=== PATIENT | female | born 1985 | race Caucasian/White ===

== ENCOUNTER 2018-08-06 15:07 | Inpatient (IN) | payer OTHER ==
[~2018-08-06 15:07] MED LIST: PROPOFOL 200 MG/20 ML VIAL ONE; Succinylcholine Chloride 20 MG/ML 10 ml SYRINGE FS ONE
[2018-08-06] MEDS: Lactated Ringer's 1,000 ML IV SCH ×2 (15:40→23:57)
[2018-08-06] MEDS: hydrALAZINE 20 MG/ML VIAL SLOW IVP SCH ×5 (15:50→23:35)
[2018-08-06 16:11] LABS: #Eosinphils 0.1 thou/uL (0.0-0.7); #Lymphocytes 1.9 thou/uL (1.20-3.40); #Monocytes 0.7 thou/uL (0.11-0.59); #Neutrophils 6.2 thou/uL (1.40-6.50); %Basophils 0.4 % (0.0-1.0); %Eosinophils 1.4 % (0.0-10.0); %Lymphocytes 21.6 % (21.0-51.0); %Monocytes 7.4 % (0.0-10.0); %Neutrophils 69.2 % (42.0-75.0); Hemoglobin 10.4 g/dL (12.0-16.0); Mean Corpuscular HGB CONC 34.3 g/dL (32.0-36.0); Mean Corpuscular Hemoglobin 28.5 pg (27.0-31.0); Mean Corpuscular Volume 83.3 fL (78.0-98.0); Mean Platelet Volume 9.9 fL (7.4-10.4); Platelet Count 256 thou/uL (130-400); RBC Distribution Width 11.4 % (11.5-14.5); Red Blood Cell (RBC) Count 3.63 mill/uL (4.20-5.40); White Blood Cell (WBC) Count 8.9 thou/uL (4.8-10.8)
[2018-08-06 16:28] LABS: ALT (SGPT) 28 U/L (8-55); ALT (SGPT) 29 U/L (8-55); AST (SGOT) 21 U/L (5-34); AST (SGOT) 23 U/L (5-34); Albumin 3.5 g/dL (3.5-5.0); Alkaline Phosphatase 84 U/L (40-150); Anion Gap 10 mmol/L (10-20); BUN (Urea Nitrogen) 8 mg/dL (7.0-18.7); Bilirubin, Total 0.4 mg/dL (0.2-1.2); Calc. Creatinine Clearance 0 mL/min (70-130); Calcium 8.9 mg/dL (7.8-10.44); Carbon Dioxide 22 mmol/L (22-29); Chloride 107 mmol/L (98-107); Estimated GFR-MDRD Greater than 90; Globulin 2.9 g/dL (2.4-3.5); Glucose 78 mg/dL (70-105); LDH 165 U/L (125-220); Potassium 4.1 mmol/L (3.5-5.1); Protein, Total 6.4 g/dL (6.0-8.3); Sodium 135 mmol/L (136-145); Uric Acid 6.2 mg/dL (2.6-6.0)
[2018-08-06 16:46] VITALS: BMI 28.8
[2018-08-06 17:26] LABS: Creatinine, Urine 31.19 mg/dL (47-110); Protein, Urine Random Quant Less than 10 mg/dL (1-14)
[2018-08-06] MEDS: Acetaminophen 500 MG TAB PO SCH (17:55)
[2018-08-06] MEDS ORDERED: Betamet Acet/Betamet Na Ph 30 MG/5 ML VIAL ONE (18:25)
[2018-08-06] MEDS: Betamet Acet/Betamet Na Ph 30 MG/5 ML VIAL IM SCH (21:12)
[2018-08-06] MEDS: Labetalol 100 MG TAB PO SCH (21:17)
--- NOTE | 2018-08-06 22:14 | CON ---
DATE OF CONSULTATION: 08/06/2018 REASON FOR CONSULTATION: Hypertension in the face of . HISTORY OF PRESENT ILLNESS: Ms. Spence is a 33-year-old woman who is the patient of Dr. Smith leo. She is at 28 weeks . She states she has had hypertension since the age of 8, altho ugh treatment was unknown. She states her blood pressure has been in the 170s/100s, which she states this is "good for her." Her blood pressure recently was in the 180s/120s. She has been on labetalo l, hydralazine in addition to nifedipine, although states she ran out of nifedipine recently. She wa s on 30 mg in addition to 200 mg of labetalol. No chest pain or pressure noted. PAST MEDICAL HISTORY: Hypertension, scoliosis. ALLERGIES: None. MEDICATIONS: As above. SOCIAL HISTORY: She is currently . No current tobacco or alcohol use. REVIEW OF SYSTEMS: Ten-point review of systems is reviewed and as above, otherwise negative. PHYSICAL EXAMINATION: GENERAL: Patient is a pleasant female who is in no acute distress. The patient appears her stated a ge. VITAL SIGNS: Blood pressure 167/101, pulse 92, temperature afebrile. NEUROLOGIC: The patient is alert and oriented times 3 with no focal neurologic deficits. HEENT: Sclerae without icterus. Mouth has moist mucous membranes with normal pallor. NECK: No JVD. Carotid upstroke brisk. No bruits bilaterally. LUNGS: Clear to auscultation with unlabored respirations. BACK: No scoliosis or kyphosis. CARDIAC: Regular rate and rhythm with normal S1 and S2. No S3 or S4 noted. No significant rubs, murmurs, thrills, or gallops noted throughout the precordium. PMI is not displa marilee. There is no parasternal heave. ABDOMEN: Soft, nontender, nondistended. No peritoneal signs present. No hepatosplenomegaly. No abnormal striae. EXTREMITIES: 2+ femoral and 2+ dorsalis pedis pulses. No cyanosis, clubbing, or edema. SKIN: No gross abnormalities. PERTINENT LABS: Hemoglobin 10.4, creatinine 0.67. Most recent echo with Doppler in Dr. Smith Barragan's office with normal LVEF, dated 05/10/2018. IMPRESSION: Hypertension. RECOMMENDATIONS: Increase labetalol to 400 mg p.o. b.i.d. in addition to adding nifedipine 90 mg aysha ly. felt to be a weak drug. We will consider hydralazine. I discussed the case with Dr. J Carlos Brown and both agreed to proceed with the current recommendations. She did have questions on deli very. I defer those question to Dr. Jatinder Brown.
[2018-08-07] MEDS ORDERED: Acetaminophen 500 MG TAB PO SCH (00:15)
[2018-08-07] MEDS: hydrALAZINE 20 MG/ML VIAL SLOW IVP SCH ×4 (02:00→09:08)
--- NOTE | 2018-08-07 07:35 | PDOC.CTH ---
Cardiology Progress Note - Objective Vital Signs Pulse BP 08/07/18 06:00 88 133/77 08/07/18 04:00 91 128/71 08/07/18 02:00 102 H 142/78 H 08/06/18 23:35 122 H 166/97 H 08/06/18 21:20 122 H 166/97 H 08/06/18 21:17 122 H 166/97 H Weight 143 lb - Physical Examination General/Neuro: alert & oriented x3, NAD Neck: carotid US brisk, no JVD present Lungs: CTA, unlabored respirations Heart: PMI normal, RRR Abdomen: NT/ND, soft Extremities: + femoral B - Labs Result Diagrams: 08/06/18 15:54 08/06/18 15:54 - Assessment/Plan HTN Improved on labetalol, nifedipine limit Na intake
[2018-08-07] MEDS: Lactated Ringer's 1,000 ML IV SCH (07:56)
[2018-08-07] MEDS: Labetalol 100 MG TAB PO SCH ×2 (09:07→20:46)
[2018-08-07] MEDS: NIFEdipine XL 60 MG TAB PO SCH (09:07)
[2018-08-07] MEDS: Betamet Acet/Betamet Na Ph 30 MG/5 ML VIAL IM SCH (18:35)
[2018-08-07] MEDS: Acetaminophen 500 MG TAB PO SCH (20:47)
[2018-08-08] MEDS: Labetalol 100 MG TAB PO SCH ×2 (09:06→17:11)
[2018-08-08] MEDS: NIFEdipine XL 60 MG TAB PO SCH (09:35)
--- NOTE | 2018-08-08 13:45 | PRG ---
DATE OF SERVICE: 08/07/2018 SUBJECTIVE: Page is currently doing well. Her blood pressure is much better controlled on hydralazine and labetalol. No current complaints. OBJECTIVE: VITAL SIGNS: Blood pressure 136/77, pulse 80, and respirations 20. LUNGS: Clear to auscultation. HEART: Regular rate and rhythm. ABDOMEN: Soft, nontender, and nondistended. EXTREMITIES: No edema. IMPRESSION: 1. Hypertension. 2. . RECOMMENDATIONS: Continue current medical therapy. I did state she should follow up with Dr. Smith Barragan as an outpatient. He is her primary refinish technician. Otherwise, . Job ID: [id number]
[2018-08-08] MEDS: Lactated Ringer's 1,000 ML IV SCH (14:31)
[2018-08-09] MEDS: Labetalol 100 MG TAB PO SCH ×3 (01:45→16:50)
[2018-08-09] MEDS: NIFEdipine XL 60 MG TAB PO SCH (09:39)
[2018-08-09] MEDS: Lactated Ringer's 1,000 ML IV SCH ×4 (16:54→22:30)
[2018-08-09] MEDS: Betamet Acet/Betamet Na Ph 30 MG/5 ML VIAL IM SCH (22:26)
[2018-08-09] MEDS: hydrALAZINE 20 MG/ML VIAL SLOW IVP SCH ×6 (22:26→22:38)
[2018-08-09] MEDS: Acetaminophen 500 MG TAB PO PRN (22:38)
[2018-08-10] MEDS: Labetalol 100 MG TAB PO SCH ×4 (01:18→20:55)
[2018-08-10] MEDS: Lactated Ringer's 1,000 ML IV SCH (01:20)
[2018-08-10] MEDS: hydrALAZINE 20 MG/ML VIAL SLOW IVP SCH ×2 (05:25→05:26)
[2018-08-10] MEDS: NIFEdipine XL 90 MG TAB PO SCH (08:47)
[2018-08-10 13:37] LABS: Hemoglobin 10.3 g/dL (12.0-16.0); Mean Corpuscular HGB CONC 34.7 g/dL (32.0-36.0); Mean Corpuscular Volume 83.4 fL (78.0-98.0); Mean Platelet Volume 9.7 fL (7.4-10.4); Platelet Count 253 thou/uL (130-400); RBC Distribution Width 11.5 % (11.5-14.5); Red Blood Cell (RBC) Count 3.54 mill/uL (4.20-5.40); White Blood Cell (WBC) Count 9.4 thou/uL (4.8-10.8)
[2018-08-10] MEDS ORDERED: hydrALAZINE 20 MG/ML VIAL SLOW IVP SCH (13:45)
[2018-08-10] MEDS: Acetaminophen 500 MG TAB PO PRN (15:43)
[2018-08-11] MEDS: NIFEdipine XL 90 MG TAB PO SCH (09:10)
[2018-08-11] MEDS: Labetalol 100 MG TAB PO SCH ×2 (09:11→17:00)
[2018-08-11 12:18] LABS: Creatinine, Urine 182.79 mg/dL (47-110)
[2018-08-11] MEDS ORDERED: Labetalol 100 MG TAB PO SCH (14:00)
[2018-08-11 19:45] LABS: Collection Duration 24 hrs; Urine Total Volume 1100 mL (600-1600)
[2018-08-11 20:02] LABS: Protein, Urine Less than 10 mg/dL (1-14)
[2018-08-12] MEDS: Labetalol 100 MG TAB PO SCH ×3 (02:00→17:50)
[2018-08-12] MEDS: NIFEdipine XL 90 MG TAB PO SCH (08:41)
[2018-08-13] MEDS: Labetalol 100 MG TAB PO SCH ×3 (00:56→19:35)
[2018-08-13] MEDS: Acetaminophen 500 MG TAB PO PRN (01:05)
[2018-08-13] MEDS: NIFEdipine XL 90 MG TAB PO SCH (09:44)
[2018-08-13] MEDS ORDERED: Betamet Acet/Betamet Na Ph 30 MG/5 ML VIAL IM ONE (13:15)
[2018-08-13] MEDS ORDERED: Magnesium Sulfate 20 GM/WATER 500 ML BAG IVPB SCH (13:15)
[2018-08-13] MEDS: Magnesium Sulfate 20 GM/WATER 500 ML BAG IVPB SCH (16:03)
[2018-08-14] MEDS: Magnesium Sulfate 20 GM/WATER 500 ML BAG IVPB SCH (01:33)
[2018-08-14] MEDS: Labetalol 100 MG TAB PO SCH ×2 (03:41→11:39)
[2018-08-14] MEDS ORDERED: Magnesium Sulfate 20 gm/500 ml 20 GM/500 ML BAG ONE ×2 (09:49→20:38)
[2018-08-14] MEDS: NIFEdipine XL 90 MG TAB PO SCH (10:33)
[2018-08-14] MEDS ORDERED: Ondansetron PF 4 MG/2 ML Vial ONE ×3 (12:17→18:51)
[2018-08-14] MEDS ORDERED: Ondansetron PF 4 MG/2 ML Vial SLOW IVP SCH (12:45)
[2018-08-14] MEDS ORDERED: Dexamethasone 20 MG/5 ML VIAL ONE (16:33)
[2018-08-14] MEDS ORDERED: Succinylcholine Chloride 20 MG/ML 10 ml SYRINGE FS ONE (16:33)
[2018-08-14] MEDS ORDERED: PROPOFOL 200 MG/20 ML VIAL ONE (16:33)
[2018-08-14] MEDS ORDERED: Fentanyl 100 MCG/2 ML VIAL ONE ×2 (16:58→18:46)
[2018-08-14] MEDS ORDERED: Morphine PF 1 MG/ML SYR ONE (17:09)
[2018-08-14] MEDS ORDERED: CEFAZOLIN 2 GM/50 ML BAG ONE (17:10)
[2018-08-14] MEDS ORDERED: Lidocaine 1% PF 5 ML VIAL ONE (17:10)
[2018-08-14] MEDS ORDERED: Bupivacaine 0.75% W/DEXTROSE 8.25% 2 ML AMP ONE (17:10)
[2018-08-14] MEDS ORDERED: Bicitra 30 ML UDCUP ONE (17:11)
[2018-08-14] MEDS ORDERED: Bicitra 30 ML UDCUP PO SCH (17:30)
[2018-08-14] MEDS ORDERED: CEFAZOLIN 2 GM/50 ML BAG IVPB SCH (17:30)
[2018-08-14] MEDS ORDERED: Oxytocin 10 UNITS/ML VIAL ONE ×2 (18:27→18:35)
[2018-08-14] MEDS ORDERED: diphenhydrAMINE 50 MG/ML VIAL IVP PRN (18:33)
[2018-08-14] MEDS ORDERED: L&D-Morphine 4 MG/ML VIAL SLOW IVP PRN (18:33)
[2018-08-14] MEDS ORDERED: Zolpidem Tartrate 5 MG TAB PO PRN (18:33)
[2018-08-14] MEDS ORDERED: HYDROmorphone 2 MG/ML VIAL SLOW IVP PRN (18:33)
[2018-08-14] MEDS ORDERED: Naloxone HCl 0.4 mg/ml Vial IV PRN (18:33)
[2018-08-14] MEDS ORDERED: Ondansetron PF 4 MG/2 ML Vial IVP PRN (18:33)
[2018-08-14] MEDS ORDERED: diphenhydrAMINE 25 MG CAP PO PRN (18:33)
[2018-08-14] MEDS ORDERED: Meperidine HCl/PF 25 MG/ML VIAL SLOW IVP PRN (18:33)
[2018-08-14] MEDS ORDERED: Promethazine HCl 25 MG/ML VIAL IM PRN (18:33)
[2018-08-14] MEDS ORDERED: diphenhydrAMINE 50 MG/ML VIAL IM PRN (18:33)
[2018-08-14] MEDS ORDERED: Ondansetron HCl/PF 4 MG/2 ML Vial IVP PRN (18:33)
[2018-08-14] MEDS ORDERED: Morphine CADD 1 MG/ML CADD IVPB PRN (18:33)
[2018-08-14] MEDS ORDERED: Ketorolac Tromethamine 30 MG/ML VIAL IVP SCH (18:45)
[2018-08-14] MEDS ORDERED: Communication Order-Pharmacy FS SCH (18:45)
[2018-08-14] MEDS ORDERED: Dexamethasone 4 mg/ml Vial ONE (18:51)
[2018-08-14 19:23] LABS: Actual Bicarbonate (HCO3v) 22 mEq/L (22-28); Base Excess -2.4 mEq/L (-2.0 to +3.0); Base Excess (BEa) -2.4 mEq/L (-2.0 to +3.0); pH (Cord, venous) 7.39 (7.32-7.43)
[2018-08-14] MEDS ORDERED: Morphine 4 MG/ML VIAL ONE (21:02)
[2018-08-14] MEDS ORDERED: Morphine 2 MG/ML SYRINGE SLOW IVP PRN (21:04)
[2018-08-14] MEDS ORDERED: Morphine 4 MG/ML VIAL SLOW IVP SCH (21:15)
[2018-08-14 22:55] LABS: Hemoglobin 9.3 g/dL (12.0-16.0); Mean Corpuscular HGB CONC 34.1 g/dL (32.0-36.0); Mean Corpuscular Hemoglobin 28.5 pg (27.0-31.0); Mean Corpuscular Volume 83.6 fL (78.0-98.0); Mean Platelet Volume 10.2 fL (7.4-10.4); Platelet Count 255 thou/uL (130-400); RBC Distribution Width 11.7 % (11.5-14.5); Red Blood Cell (RBC) Count 3.27 mill/uL (4.20-5.40); White Blood Cell (WBC) Count 15.5 thou/uL (4.8-10.8)
[2018-08-15] MEDS ORDERED: Magnesium Sulfate 20 gm/500 ml 20 GM/500 ML BAG IVPB SCH (03:30)
[2018-08-15] MEDS: Labetalol 100 MG TAB PO SCH ×2 (08:38→17:35)
[2018-08-15] MEDS ORDERED: Adacel (T-DAP) 0.5 ML SYRINGE IM ONE (16:59)
[2018-08-15] MEDS ORDERED: Zolpidem Tartrate 5 MG TAB PO PRN (16:59)
[2018-08-15] MEDS ORDERED: HYDROcodone/Acetaminophen 5/325 mg Tablet PO PRN ×2 (16:59)
[2018-08-15] MEDS ORDERED: Lanolin Ointment 7 GM TUBE TOP PRN (16:59)
[2018-08-15] MEDS ORDERED: Bisacodyl 10 MG SUPP PR PRN (16:59)
[2018-08-15] MEDS ORDERED: Simethicone Chewable 80 MG TAB PO PRN (16:59)
[2018-08-15] MEDS ORDERED: Ondansetron PF 4 MG/2 ML Vial IVP PRN (16:59)
[2018-08-15] MEDS ORDERED: Meperidine HCl/PF 25 MG/ML VIAL IM PRN (16:59)
[2018-08-15] MEDS ORDERED: Acetaminophen 325 MG TAB PO PRN (16:59)
[2018-08-15] MEDS ORDERED: diphenhydrAMINE 25 MG CAP PO PRN (16:59)
[2018-08-15] MEDS ORDERED: Lactated Ringer's 1,000 ML IV SCH (17:00)
[2018-08-15] MEDS ORDERED: hydrALAZINE 20 MG/ML VIAL SLOW IVP SCH (17:15)
[2018-08-15] MEDS ORDERED: Labetalol 100 MG TAB PO SCH (21:00)
[2018-08-15] MEDS: Ferrous Sulfate 325 MG TAB PO SCH (22:41)
[2018-08-15] MEDS: Docusate Calcium (SURFAK) 240 MG CAP PO SCH (22:43)
[2018-08-15] MEDS: Ibuprofen 800 MG TAB PO SCH (22:43)
[2018-08-16] MEDS: Ibuprofen 800 MG TAB PO SCH ×3 (05:37→21:52)
[2018-08-16 06:54] LABS: Hemoglobin 7.9 g/dL (12.0-16.0); Mean Corpuscular HGB CONC 31.9 g/dL (32.0-36.0); Mean Corpuscular Hemoglobin 27.1 pg (27.0-31.0); Mean Corpuscular Volume 85.1 fL (78.0-98.0); Mean Platelet Volume 9.9 fL (7.4-10.4); Platelet Count 258 thou/uL (130-400); RBC Distribution Width 11.8 % (11.5-14.5); White Blood Cell (WBC) Count 10.4 thou/uL (4.8-10.8)
[2018-08-16] MEDS: Sodium Chloride 0.9% 10 ML ONE (07:58)
[2018-08-16] MEDS: Triamterene/Hydrochlorothiazide 37.5 mg/25 mg Tablet PO SCH (08:38)
[2018-08-16] MEDS: Docusate Calcium (SURFAK) 240 MG CAP PO SCH ×2 (08:38→21:52)
[2018-08-16] MEDS: Prenatal Vitamin 1 TAB PO SCH (08:38)
[2018-08-16] MEDS: Ferrous Sulfate 325 MG TAB PO SCH ×2 (08:38→21:52)
[2018-08-16] MEDS: Ketorolac Tromethamine 30 MG/ML VIAL IVP SCH ×2 (09:25→09:27)
[2018-08-16] MEDS: Labetalol 100 MG TAB PO SCH ×3 (09:27→21:53)
[2018-08-16] MEDS ORDERED: Labetalol 100 MG TAB PO SCH (10:30)
[2018-08-16] MEDS ORDERED: HYDROcodone/Acetaminophen 5/325 mg Tablet PO PRN (12:04)
[2018-08-16] MEDS: HYDROcodone/Acetaminophen 5/325 mg Tablet PO PRN ×2 (13:59→22:50)
[2018-08-17] MEDS ORDERED: Sodium Chloride 0.9% 10 ML ONE ×2 (01:46→16:59)
[2018-08-17] MEDS: hydrALAZINE 20 MG/ML VIAL SLOW IVP PRN ×3 (01:48→17:08)
[2018-08-17] MEDS: Ibuprofen 800 MG TAB PO SCH ×3 (05:48→22:21)
[2018-08-17] MEDS: Prenatal Vitamin 1 TAB PO SCH (09:13)
[2018-08-17] MEDS: Ferrous Sulfate 325 MG TAB PO SCH ×2 (09:13→22:19)
[2018-08-17] MEDS: Triamterene/Hydrochlorothiazide 37.5 mg/25 mg Tablet PO SCH (09:14)
[2018-08-17] MEDS: Docusate Calcium (SURFAK) 240 MG CAP PO SCH ×2 (09:14→22:21)
[2018-08-17] MEDS: Labetalol 100 MG TAB PO SCH ×3 (09:41→22:20)
[2018-08-17] MEDS: HYDROcodone/Acetaminophen 5/325 mg Tablet PO PRN ×3 (13:23→22:19)
[2018-08-17] MEDS: Sodium Chloride 0.9% 10 ML ONE (17:09)
[2018-08-17] MEDS ORDERED: NIFEdipine XL 60 MG TAB PO SCH (18:15)
[2018-08-18] MEDS: Ibuprofen 800 MG TAB PO SCH ×3 (05:46→21:55)
[2018-08-18] MEDS: Ferrous Sulfate 325 MG TAB PO SCH ×2 (08:36→21:56)
[2018-08-18] MEDS: Labetalol 100 MG TAB PO SCH ×3 (08:37→21:56)
[2018-08-18] MEDS: Prenatal Vitamin 1 TAB PO SCH (08:37)
[2018-08-18] MEDS: NIFEdipine XL 60 MG TAB PO SCH (08:37)
[2018-08-18] MEDS: Hydrochlorothiazide 25 MG TAB PO SCH (08:37)
[2018-08-18] MEDS: Docusate Calcium (SURFAK) 240 MG CAP PO SCH ×2 (08:40→21:55)
[2018-08-18] MEDS ORDERED: Sodium Chloride 0.9% 20 ML ONE (09:12)
[2018-08-19] MEDS: Ibuprofen 800 MG TAB PO SCH (06:26)
[2018-08-19] MEDS: Prenatal Vitamin 1 TAB PO SCH (09:47)
[2018-08-19] MEDS: Labetalol 100 MG TAB PO SCH (09:47)
[2018-08-19] MEDS: Ferrous Sulfate 325 MG TAB PO SCH (09:48)
[2018-08-19] MEDS: Hydrochlorothiazide 25 MG TAB PO SCH (09:49)
[2018-08-19] MEDS: Docusate Calcium (SURFAK) 240 MG CAP PO SCH (09:49)
[2018-08-19] MEDS: NIFEdipine XL 60 MG TAB PO SCH (09:50)
[2018-08-19 11:03] VITALS: BP 140/94; TEMP 98.8
--- NOTE | 2018-08-19 21:25 | DN ---
DATE OF PROCEDURE: 08/14/2018 DATE OF DELIVERY: 08/14/2018. TIME OF DELIVERY: 1828 hours. RESIDENT SURGEON: Yumiko Morrison DO. ATTENDING SURGEON: Kam Brown MD. PROCEDURE PERFORMED: Repeat low transverse section. PREOPERATIVE DIAGNOSES: 1. intrauterine at 29.2 weeks. 2. Chronic refractory hypertension; blood pressure unresponsive to three agents. POSTOPERATIVE DIAGNOSES: 1. intrauterine at 29.2 weeks. 2. Chronic refractory hypertension; blood pressure unresponsive to three agents. ANESTHESIA: Spinal, unsuccessful. Patient required general anesthesia. INDICATIONS: This is a 33-year-old G3, P0-1-1-1 female at 29.2 weeks gestation, who initially presented to [facility] Delivery for uncontrolled chronic hypertension. She was given steroids and magnesium. Additionally, the patient was started on 3 blood pressure agents and her blood pressure remained in the 170s/110 range. This case was discussed with the staff and surgeon partner and a decision was made to proceed with delivery secondary to the refractory hypertension and severe range pressures. DESCRIPTION OF PROCEDURE: After risks, benefits, and alternatives of the surgery were explained to the patient, she gave informed consent. Preoperative antibiotics included cefazolin 2 gm IV. The patient was taken to the operating room and anesthesia was attempted, however, the spinal anesthesia was unsuccessful due to rods that are in place from a prior surgery, thus the patient underwent general anesthesia for the operation. The patient was placed in the supine position with a left tilt and prepped and draped in the usual sterile fashion. A Pfannenstiel incision was made with the scalpel and carried down to the level of the fascia and sharply nicked. The fascial cut was extended bilaterally with Doll scissors. The inferior and superior edges of the cut fascial edges were elevated with Wally clamps from the underlying rectus muscle were sharply and bluntly dissected free. The recti were divided digitally and retracted manually. The peritoneum was entered bluntly and retracted manually. Bladder blade was placed. The bladder flap was created with Metzenbaum scissors. A low transverse score was made with the scalpel and the uterus was entered in the midline with the scalpel. Clear fluid was seen. Hysterotomy was extended manually. The was noted to be vertex and was easily delivered by fundal pressure. Mouth and nares were bulb suctioned. Cord was clamped and cut, and grossly normal male. infant was handed to the awaiting nurse. Cord blood and cord gases were obtained. Placenta was manually extracted and found to be intact. Three-vessel cord noted. The uterus was externalized and the endometrium was curetted with a dry lap. The bladder blade was replaced and the uterus was closed with a running #1 chromic suture. Following this hemostasis was noted. The uterus was internalized and hysterotomy was again noted to be hemostatic. The peritoneum was closed using 2- 0 Vicryl. The recti muscles were also brought together using 2-0 Vicryl. Seprafilm was placed over hysterotomy site. The fascia was closed using 0-Vicryl with a running non locking suture. The subcutaneous tissue was irrigated and bleeders were cauterized. The subcutaneous tissue was then closed using 2-0 plain gut. The skin was approximated using 4-0 Monofilament. Dermabond was applied and a pressure dressing was placed along with an ice pack. All counts were correct. The patient tolerated the procedure well and was taken to the recovery room in stable condition. ESTIMATED BLOOD LOSS: Approximately 800 mL, QBL was 750 mL. COMPLICATIONS: None. SPECIMENS: Cord blood and cord gas sent to lab for analysis. FINDINGS: Grossly normal male with of 6 and 8, grossly normal placenta with [id number] discarded. DRAIN: Villegas to gravity draining clear urine. Job ID: [id number] [facility]
== END 2018-08-19 16:41 | disposition home or self-care (01) | DRG 788 ==
LOC: L&D 15:07 → 3SE 08-15 20:23
PROVIDERS: ADMIT Obstetrics & Gynecology; ATTEND Obstetrics & Gynecology
PROC: 10D00Z1 Extraction of Products of Conception, Low, Open Approach (ICD-10-PCS; principal; 2018-08-14)
DX: O10.92 Unspecified pre-existing hypertension complicating childbirth (principal); O34.211 Maternal care for low transverse scar from previous cesarean delivery; Z3A.28 28 weeks gestation of pregnancy; Z37.0 Single live birth
CPT/HCPCS: 36415; 51702; 59025; 81003; 82570; 82805; 83615; 84156; 84450; 84460; 84550; 85025; 85027; 86850; 86900; 86901; 88307; 90715; J0360; J0702; J1100; J2001; J2270; J2274; J2405; J2590; J2704; J3010; J3475; J3490